=== PATIENT | female | born 1930 | race Caucasian/White ===

== ENCOUNTER 2018-04-02 10:15 | Observation (INO) | payer OTHER, MEDICARE ==
[2018-04-02 10:26] VITALS: BMI 21.7
--- NOTE | 2018-04-02 10:36 | PDOC ---
History of Present Illness - History of Present Illness Initial Comments: This patient is an 87 year old female with a PMHx of rheumatoid arthritis, HTN, HLD, who was referred to the ED by her PCP with complaints of right flank pain this morning. Patient states that her right flank pain began this morning and denies any recent trauma or any recent strenuous activity. Patient states that the flank pain shoots down to the level of her right knee making it extremely difficult for her ambulate or move much. She states that she had a similar less intense right flank/back pain during the week that she attributed to her arthritis. She states that she has never experienced this pain before. Patient states that she took 2 extra strength Tylenol this morning. Denies right foot weakness, urinary incontinence, difficulty voiding. Social Hx: denies EtOH or cigarette use PCP: Bossman Humphries <Faith Collado - Last Filed: 04/02/18 15:05> <Ian Kim - Last Filed: 04/02/18 15:58> - General Chief Complaint: Pain, Acute Stated Complaint: PCP SENT/PAIN, ACUTE Time Seen by Provider: 04/02/18 10:36 Past History <Faith Collado - Last Filed: 04/02/18 15:05> - Past Medical History Anemia: Yes Asthma: No Cancer: No Cardiac Disorders: No CVA: No COPD: No CHF: No Dementia: No Diabetes: No GI Disorders: Yes (REFLUX) Disorders: No HTN: Yes (DX 1994) Hypercholesterolemia: Yes (OFF MEDS CURRENTLY) Liver Disease: No Seizures: No Thyroid Disease: No - Surgical History Abdominal Surgery: Yes ([facility]) Appendectomy: No Cardiac Surgery: No Cholecystectomy: No Neurologic Surgery: No Orthopedic Surgery: Yes (R ROTATOR CUFF REPAIR-2004) - Immunization History Immunization Up to Date: No - Suicide/Smoking/Psychosocial Hx Smoking History: Never smoked Have you smoked in the past 12 months: No Information on smoking cessation initiated: No Hx Alcohol Use: No Drug/Substance Use Hx: No Substance Use Type: None Hx Substance Use Treatment: No <Ian Kim - Last Filed: 04/02/18 15:58> - Past Medical History Allergies/Adverse Reactions: Allergies Allergy/AdvReac Type Severity Reaction Status Date / Time No Known Allergies Allergy Verified 03/02/15 08:58 Home Medications: Ambulatory Orders Aspirin [Aspirin EC] 81 mg PO DAILY 02/15/15 Calcium Carbonate [Tums Calcium For Life] 300 mg PO DAILY 02/15/15 Cholecalciferol (Vitamin D3) [Vitamin D3] 1,000 unit PO DAILY 02/15/15 Fish Oil/Borage/Flax/Om3,6,9 1 [[place] 3-6-9 Complex Softgel] 400 mg PO DAILY 01/22 Lisinopril [Prinivil -] 40 mg PO DAILY 02/15/15 Multivitamins [Multivit ([facility])] 1 tab PO DAILY 02/15/15 Vitamin B Complex 1 tab PO DAILY 02/15/15 Atorvastatin Ca [Lipitor] 10 mg PO HS 04/02/18 Nebivolol [Bystolic -] 5 mg PO HS 04/02/18 Review of Systems - Review of Systems Comments:: CONSTITUTIONAL: No fever, no chills, no fatigue EYES: No visual changes ENT: No ear pain, no sore throat CARDIOVASCULAR: No chest pain, no palpitations RESPIRATORY: No cough, no SOB GI: No abdominal pain, no nausea, no vomiting, no constipation, no diarrhea GENITOURINARY: No dysuria, no frequency, no hematuria MUSKULOSKELETAL: +right flank pain (radiates to right leg). SKIN: No rash NEURO: No headache <Faith Collado - Last Filed: 04/02/18 15:05> *Physical Exam - Vital Signs Last Vital Signs Temp Pulse Resp BP Pulse Ox 97.6 F 60 16 215/80 H 99 04/02/18 10:22 04/02/18 10:22 04/02/18 10:22 04/02/18 10:22 04/02/18 10:22 <Faith Collado - Last Filed: 04/02/18 15:05> - Vital Signs Last Vital Signs Temp Pulse Resp BP Pulse Ox 97.6 F 60 16 215/80 H 99 04/02/18 10:22 04/02/18 10:22 04/02/18 10:22 04/02/18 10:22 04/02/18 10:22 - Physical Exam Comments: 04/02/18 13:00 EXAMINATION CONSTITUTIONAL: Patient is awake and alert, unable to ambulate without assistance, in moderate distress HEAD: Normocephalic; atraumatic EYES: PERRL; EOM intact ENMT: External appears normal; normal oropharynx NECK: Supple; non-tender; no cervical lymphadenopathy CARD: Normal S1, S2; no murmurs, rubs, or gallops RESP: Normal chest excursion with respiration; breath sounds clear and equal bilaterally; no wheezes, rhonchi, or rales ABD: Soft, non-distended; non-tender; no palpable organomegaly, no palpable hernias BACK: No obvious deformity, mild midline and right paraspinal tenderness at L3/ L4/L5 and S1; pelvis is stable EXT: Normal passive ROM in all four extremities; straight leg raise is positive on the right; non-tender to palpation; distal pulses intact; gait is deferred; DTRs are +2 bilaterally; SKIN: Warm, dry, no rash NEURO: Cranial nerves II through XII are grossly intact; right lower extremity: Hip flexion/extension 5 of 5; knee flexion/extension 5 of 5; plantar flexion is 4 of 5; dorsi flexion of the right foot is 3 of 5; left lower extremity: Hip flexion/extension 5 of 5; knee flexion/extension 5 of 5; foot dorsiflexion/ plantar flexion 5 of 5; <Ian Kim - Last Filed: 04/02/18 15:58> ED Treatment Course - LABORATORY CBC & Chemistry Diagram: 04/02/18 11:05 04/02/18 11:05 - RADIOLOGY Radiograph Interpretation: Lumbar Spine MRI Impression: Rotatory dextroscoliosis of lumbosacral spine. No evidence of disc herniation, central spinal canal stenosis. Mild spondylolisthesis is observed at several levels as described the body of report. No compression of neural structure traversing through the neural foramina. No acute compression deformities are seen. Reported By: Sherri Silverman MD 04/02/18 9312 Lumbar Sacral X-ray Impression: Dextroscoliosis of the lumbosacral spine. L5-S1. Loss of interval disc space height. Mild degenerative anterior spondylolisthesis on L4 on L5 is suggested. Reported By: Herrera Polanco MD 04/02/18 9917 - Medications Given in the ED: ED Medications Discontinued Medications Generic Name Dose Route Start Last Admin Trade Name Freq PRN Reason Stop Dose Admin Morphine Sulfate 2 mg 04/02/18 10:58 04/02/18 11:21 Morphine Sulfate IVPUSH 04/02/18 10:59 2 mg ONCE ONE Administration <Faith Collado - Last Filed: 04/02/18 15:05> - LABORATORY CBC & Chemistry Diagram: 04/02/18 11:05 04/02/18 11:05 <Ian Kim - Last Filed: 04/02/18 15:58> Medical Decision Making - Medical Decision Making 04/02/18 11:43 87-year-old female with hypertension and hyperlipidemia presents with Low back pain and right sided foot drop in the L4/L5/S1 distribution. Will obtain MR without contrast to rule out nerve compression. We'll administer pain meds. Neurosurgical consult as needed. 04/02/18 15:57 Patient's MRI reveals no evidence of spinal stenosis or nerve root compression or cauda equina syndrome. On reassessment, after administration of pain medication, patient's foot drop is no longer appreciated. Reproducible pain is noted at the right gluteal area. Will obtain CT of pelvis to rule out piriformis syndrome. Will place in obs for intractable back pain. <Ian Kim - Last Filed: 04/02/18 15:58> *DC/Admit/Observation/Transfer - Attestations Scribe Attestion: 04/02/18 11:24 Documentation prepared by Faith Collado, acting as medical research associate for Ian Kim MD. <Faith Collado - Last Filed: 04/02/18 15:05> - Discharge Dispostion Decision to Admit order: Yes <Ian Kim - Last Filed: 04/02/18 15:58> Diagnosis at time of Disposition: Intractable low back pain - Discharge Dispostion Condition at time of disposition: Fair
[2018-04-02] MEDS ORDERED: MORPHINE SULFATE 2 MG/ML VIAL IVPUSH ONE (10:58)
[2018-04-02] MEDS ORDERED: MORPHINE SULFATE 2 MG/ML VIAL ONE (11:15)
[2018-04-02 11:45] LABS: BASO % 0.3 % (0-2.0); EOS % 0.4 % (0-4.5); HEMATOCRIT 38.3 % (32.4-45.2); MCH 19.8 pg (25.7-33.7); MCHC 31.4 g/dl (32.0-36.0); MEAN CELL VOLUME 63.1 fl (80-96); MEAN PLT VOLUME 9.6 fl (7.5-11.1); MONO % 5.1 % (3.8-10.2); NEUT % 77.2 % (42.8-82.8); PLATELET COUNT 237 K/MM3 (134-434); RBC 6.07 M/mm3 (3.60-5.2); RDW 16.8 % (11.6-15.6); WHITE BLOOD COUNT 6.6 K/mm3 (4.0-10.0)
[2018-04-02 11:58] LABS: INR 0.96 (0.83-1.09); PROTHROMBIN TIME (PATIENT) 11.3 SEC (9.7-13.0)
[2018-04-02 12:20] LABS: ALBUMIN 4.6 g/dl (3.4-5.0); ALK PHOS 69 U/L (45-117); ANION GAP 9 MMOL/L (8-16); BILIRUBIN,TOTAL 0.6 mg/dL (0.2-1); BLOOD UREA NITROGEN 14 mg/dL (7-18); CALCIUM 9.3 mg/dL (8.5-10.1); CHLORIDE 103 mmol/L (98-107); CO2 28 mmol/L (21-32); CREATININE 0.7 mg/dL (0.55-1.3); GLUCOSE,RANDOM 84 mg/dL (74-106); POTASSIUM 4.4 mmol/L (3.5-5.1); SGOT/AST 18 U/L (15-37); SGPT/ALT 21 U/L (13-61); SODIUM 140 mmol/L (136-145); TOT PROT 7.7 g/dl (6.4-8.2)
[2018-04-02] MEDS ORDERED: ONDANSETRON 4 MG/2 ML VIAL IVPUSH ONE (12:24)
[2018-04-02] MEDS ORDERED: ONDANSETRON 4 MG/2 ML VIAL ONE ×2 (12:26→15:39)
[2018-04-02 13:35] LABS: ANISOCYTOSIS 2+; MACROCYTOSIS 0; OVALOCYTE 1+; PLATELET ESTIMATE NORMAL; TARGET CELLS 2+
[2018-04-02] MEDS ORDERED: ONDANSETRON 4 MG/2 ML VIAL IVPB ONE (15:05)
[2018-04-02] MEDS ORDERED: DEXTROSE 5%-0.45% SALINE 1,000 ML IV SCH (15:15)
--- NOTE | 2018-04-02 16:25 | HP ---
Admitting History and Physical - Primary Care Physician PCP: Bossman Humphries - Admission Chief Complaint: back pain History of Present Illness: is a pleasant 87 year old female pmh of HTN,HLD,OA who comes in with complaints of severe lower back pain which started this am. Pt reports sudden onset of severe 10/10 sharp pain on right lower lumbar area radiating to RLE without significant relief. She reports she has never had this pain in the past. She reports inability to ambulate and function due to the pain. Pt denies any falls, or trauma at home. Denies any chest pain, sob, n/v/d, abd pain, fecal /urinary incontinence, numbness/tingling, fever/chills, unilateral weakness, dysuria, blood in urine/stool or rash. History Source: Patient, Family Member Limitations to Obtaining History: No Limitations - Past Medical History Cardiovascular: Yes: HTN, Hyperlipdemia Heme/Onc: Yes: Other (Thalassemia trait) Infectious Disease: Yes: Herpes Zoster Musculoskeletal: Yes: Osteoarthritis - Past Surgical History Past Surgical History: Yes: Arthrosocopy (s/p right rotator cuff surgery), Cataract Removal, Hysterectomy - Smoking History Smoking history: Never smoked Have you smoked in the past 12 months: No - Alcohol/Substance Use Hx Alcohol Use: No History of Substance Use: reports: None - Social History Usual Living Arrangement: Yes: With Child ADL: Independent History of Recent Travel: No Home Medications - Allergies Allergies/Adverse Reactions: Allergies Allergy/AdvReac Type Severity Reaction Status Date / Time Penicillins Allergy Verified 04/02/18 16:22 - Home Medications Home Medications: Ambulatory Orders Lisinopril [Prinivil -] 40 mg PO DAILY 02/15/15 Atorvastatin Ca [Lipitor] 10 mg PO HS 04/02/18 Nebivolol [Bystolic -] 10 mg PO HS 04/02/18 Family Disease History - Family Disease History Family Disease History: Heart Disease: Father, CA: Mother (lymphoma), Brother ( lymphoma) Review of Systems Findings/Remarks: as per hpi Physical Examination Vital Signs: Vital Signs Temperature 98 F 04/02/18 13:31 Pulse Rate 56 L 04/02/18 13:31 Respiratory Rate 20 04/02/18 13:31 Blood Pressure 119/65 04/02/18 13:31 O2 Sat by Pulse Oximetry (%) 98 04/02/18 13:31 Constitutional: Yes: Well Nourished, No Distress, Calm Cardiovascular: Yes: WNL, Regular Rate and Rhythm. No: Murmur, Rub Respiratory: Yes: WNL, Regular, CTA Bilaterally. No: Accessory Muscle Use, Rhonchi, SOB, Tachypnea, Wheezes Gastrointestinal: Yes: WNL, Normal Bowel Sounds, Soft, Abdomen, Obese. No: Distention, Tenderness Renal/: Yes: CVA Tenderness - Right Musculoskeletal: Yes: Back Pain (+TTP) Extremities: Yes: WNL Edema: No Neurological: Yes: WNL, Alert, Oriented Psychiatric: Yes: WNL, Alert, Oriented Labs: CBC, BMP 04/02/18 11:05 04/02/18 11:05 Imaging - Results X-ray: Report Reviewed (Lumbar Sacral X-ray: Dextroscoliosis of the lumbosacral spine. L5-S1. Loss of interval disc space height. Mild degenerative anterior spondylolisthesis on L4 on L5 is suggested.) Cat Scan: Pending MRI: Report Reviewed (Lumbar Spine MRI: Rotatory dextroscoliosis of lumbosacral spine. No evidence of disc herniation, central spinal canal stenosis. Mild spondylolisthesis is observed at several levels as described the body of report. No compression of neural structure traversing through the neural foramina. No acute compression deformities are seen.) Problem List - Problems (1) Intractable low back pain Assessment/Plan: severe 10/10 right LBP radiating to RLE +ttp xray/mri lumbar spine without acute findings r/o infectious/renal etiology UA/UC ordered abd/pelvic CT ordered tylenol/juan/tramadol if no improvement, will do trial of nsaids PT ordered monitor Code(s): M54.5 - LOW BACK PAIN (2) Impaired ambulation Assessment/Plan: as above Code(s): R26.2 - DIFFICULTY IN WALKING, NOT ELSEWHERE CLASSIFIED (3) HTN (hypertension) Assessment/Plan: controlled continue lisinopril, bystolic Code(s): I10 - ESSENTIAL (PRIMARY) HYPERTENSION Qualifiers: Hypertension type: essential hypertension Qualified Code(s): I10 - Essential (primary) hypertension (4) HLD (hyperlipidemia) Assessment/Plan: stable continue statin Code(s): E78.5 - HYPERLIPIDEMIA, UNSPECIFIED (5) Thalassemia trait Assessment/Plan: h/h stable Code(s): D56.3 - THALASSEMIA MINOR (6) History of herpes zoster Code(s): Z86.19 - PERSONAL HISTORY OF OTHER INFECTIOUS AND PARASITIC DISEASES
[2018-04-02] MEDS ORDERED: oxyCODONE HCL 5 MG TABLET PO PRN (16:30)
[2018-04-02] MEDS ORDERED: traMADol HCL 50 MG TABLET PO PRN (16:32)
[2018-04-02] MEDS: ONDANSETRON 4 MG/2 ML VIAL IVPUSH PRN (19:53)
[2018-04-02] MEDS: NEBIVOLOL 10 MG TABLET (FP) PO SCH (21:33)
[2018-04-02] MEDS: ATORVASTATIN CA 10 MG TABLET (FP) PO SCH (21:34)
[2018-04-02 23:49] LABS: URINE APPEARANCE SLCLOUDY; URINE BILIRUBIN NEGATIVE (<2.0 mg/dL); URINE COLOR YELLOW; URINE GLUCOSE (UA) NEGATIVE (NEGATIVE); URINE KETONE TRACE (NEGATIVE); URINE LEUK ESTERASE NEGATIVE (NEGATIVE); URINE NITRITE NEGATIVE (NEGATIVE); URINE PROTEIN NEGATIVE (NEGATIVE); URINE UROBILINOGEN NEGATIVE mg/dL (0.2-1.0)
[2018-04-03] MEDS: ACETAMINOPHEN 325 MG TABLET (FP) PO SCH ×3 (00:55→06:44)
[2018-04-03 07:33] LABS: BASO % 0.4 % (0-2.0); EOS % 2.5 % (0-4.5); HEMATOCRIT 34.9 % (32.4-45.2); LYMPH % 37.8 % (8-40); MCHC 31.4 g/dl (32.0-36.0); MEAN CELL VOLUME 62.7 fl (80-96); MEAN PLT VOLUME 8.7 fl (7.5-11.1); MONO % 9.3 % (3.8-10.2); PLATELET COUNT 223 K/MM3 (134-434); RBC 5.57 M/mm3 (3.60-5.2); RDW 16.8 % (11.6-15.6)
[2018-04-03 07:34] LABS: MCH 19.7 pg (25.7-33.7)
[2018-04-03 07:50] LABS: ANION GAP 9 MMOL/L (8-16); BLOOD UREA NITROGEN 9 mg/dL (7-18); CALCIUM 8.3 mg/dL (8.5-10.1); CHLORIDE 105 mmol/L (98-107); CO2 29 mmol/L (21-32); CREATININE 0.7 mg/dL (0.55-1.3); GLUCOSE,RANDOM 95 mg/dL (74-106); POTASSIUM 3.8 mmol/L (3.5-5.1); SODIUM 142 mmol/L (136-145)
[2018-04-03] MEDS: LISINOPRIL 20 MG TABLET (FP) PO SCH (10:46)
[2018-04-03] MEDS: IBUPROFEN 400 MG TABLET (FP) PO SCH ×2 (11:18→18:09)
[2018-04-03] MEDS: ONDANSETRON 4 MG/2 ML VIAL IVPUSH PRN (11:19)
--- NOTE | 2018-04-03 11:22 | PN ---
Progress Note, Physician Chief Complaint: Pt lying in bed in no acute distress. Pain slightly improved. Nausea w/ oxycodone. tolerated PT but still has severe pain. Denies any chest pain, sob, v /d, numbness/tingling - Current Medication List Current Medications: Active Medications Atorvastatin Calcium (Lipitor -) 10 mg PO HS [facility] Last Admin: 04/02/18 21:34 Dose: Not Given Ibuprofen (Motrin -) 400 mg PO Q6HPO [facility] Lisinopril (Prinivil) 40 mg PO DAILY [facility] Last Admin: 04/03/18 10:46 Dose: 40 mg Nebivolol (Bystolic -) 10 mg PO HS [facility] Last Admin: 04/02/18 21:33 Dose: 10 mg Ondansetron HCl (Zofran Injection) 4 mg IVPUSH Q6H PRN PRN Reason: NAUSEA Last Admin: 04/02/18 19:53 Dose: 4 mg Oxycodone HCl (Roxicodone -) 5 mg PO Q6H PRN PRN Reason: PAIN LEVEL 7 - 10 Last Admin: 04/03/18 08:45 Dose: 5 mg Tramadol HCl (Ultram -) 25 mg PO Q6H PRN PRN Reason: PAIN LEVEL 4 - 6 - Objective Vital Signs: Vital Signs Temperature 97.9 F 04/03/18 05:00 Pulse Rate 50 L 04/03/18 05:00 Respiratory Rate 18 04/03/18 05:00 Blood Pressure 126/48 L 04/03/18 05:00 O2 Sat by Pulse Oximetry (%) 98 04/02/18 20:00 Constitutional: Yes: Well Nourished, No Distress, Calm Cardiovascular: Yes: WNL, Regular Rate and Rhythm. No: Gallop, Murmur Respiratory: Yes: WNL, Regular, CTA Bilaterally Gastrointestinal: Yes: WNL, Normal Bowel Sounds, Soft. No: Distention, Hematemesis, Tenderness, Rebound, Vomiting Genitourinary: Yes: WNL Musculoskeletal: Yes: Back Pain (Right lateral lumbar, +TTP) Edema: No Neurological: Yes: WNL, Alert, Oriented Psychiatric: Yes: WNL, Alert, Oriented Labs: CBC, BMP 04/03/18 06:50 04/03/18 06:50 INR, PTT INR 0.96 (0.83-1.09) 04/02/18 11:05 Assessment/Plan (1) Intractable low back pain Assessment/Plan: improving +ttp, reproducible xray/mri lumbar spine without acute findings abd/pelvis ct w/ focal colon thickening, unlikely cause of pain however will consult GI to evaluate infectious work up negative suspect possible muscle strain d/c juan due to nausea trial of motrin, flexeril apply heat packs for relief PT- ambulated 100ft monitor Code(s): M54.5 - LOW BACK PAIN (2) Low back strain Assessment/Plan: as above Code(s): S39.012A - STRAIN OF MUSCLE, FASCIA AND TENDON OF LOWER BACK, INIT Qualifiers: Encounter type: initial encounter Qualified Code(s): S39.012A - Strain of muscle, fascia and tendon of lower back, initial encounter (3) Impaired ambulation Assessment/Plan: as above Code(s): R26.2 - DIFFICULTY IN WALKING, NOT ELSEWHERE CLASSIFIED (4) HTN (hypertension) Assessment/Plan: controlled continue lisinopril, bystolic Code(s): I10 - ESSENTIAL (PRIMARY) HYPERTENSION Qualifiers: Hypertension type: essential hypertension Qualified Code(s): I10 - Essential (primary) hypertension (5) HLD (hyperlipidemia) Assessment/Plan: stable continue statin Code(s): E78.5 - HYPERLIPIDEMIA, UNSPECIFIED (6) Thalassemia trait Assessment/Plan: h/h stable Code(s): D56.3 - THALASSEMIA MINOR (7) History of herpes zoster Code(s): Z86.19 - PERSONAL HISTORY OF OTHER INFECTIOUS AND PARASITIC DISEASES Dispo: home w/ vns tmorrow if pain controlled without acute changes
--- NOTE | 2018-04-03 12:17 | EKG ---
Test Reason : Blood Pressure : / mmHG Vent. Rate : 051 BPM Atrial Rate : 051 BPM P-R Int : 156 ms QRS Dur : 084 ms QT Int : 476 ms P-R-T Axes : 059 -08 005 degrees QTc Int : 438 ms SINUS BRADYCARDIA NONSPECIFIC T WAVE ABNORMALITY ABNORMAL ECG NO PREVIOUS ECGS AVAILABLE Confirmed by ALLEN LEAHY, GIL ([id number]) on 04/03/2018 12:17:37 PM Referred By: Confirmed By:GIL VILLA MD
[2018-04-03] MEDS: PANTOPRAZOLE 20 MG TABLET (FP) PO SCH (12:36)
[2018-04-03] MEDS: CYCLOBENZAPRINE HCL 10 MG TABLET (FP) PO SCH (12:36)
--- NOTE | 2018-04-03 17:56 | CON.GI ---
Consult Consult Specialty:: GI Referred by:: Dr. Bossman Humphries Reason for Consultation:: Thickening along ascending colon on CT scan - History of Present Illness Chief Complaint: right hip pain History of Present Illness: 87F admitted fopr evaluation of right hip pain. She underwent CT scan of the abdomen that revealed an area of non-specific thickening on CT scan along the ascending colon. She denies diarrhea, rectal bleeding, change in bowel habits. She had a colonoscopy 10 years ago and has two in her life. She denies a history of colon polyps. One of her sisters had colon cancer diagnosed at age 42. The pain was reproducible upon palpation of the lateral and posterior portion of her right hip. She was started on NSAIDs, which seems to have improved the pain as she can now walk to the bathroom. - History Source History Provided By: Patient, Family Member - Past Medical History Cardio/Vascular: Yes: HTN, Hyperlipdemia Infectious Disease: Yes: Herpes Zoster Musculoskeletal: Yes: Osteoarthritis - Past Surgical History Past Surgical History: Yes: Arthrosocopy (s/p right rotator cuff surgery), Cataract Removal, Hysterectomy (CARMELITA/BSO) Additional Surgical History: bladder lift, resection of benign tumor on left thigh, right rotator cuff repair - Alcohol/Substance Use Hx Alcohol Use: No History of Substance Use: reports: None - Smoking History Smoking history: Never smoked Have you smoked in the past 12 months: No - Social History Usual Living Arrangement: With Child () ADL: Independent Occupation: Retired: worked on [employer] Place of : [facility] History of Recent Travel: No Home Medications - Allergies Allergies/Adverse Reactions: Allergies Allergy/AdvReac Type Severity Reaction Status Date / Time Penicillins Allergy Verified 04/02/18 16:22 - Home Medications Home Medications: Ambulatory Orders Lisinopril [Prinivil -] 40 mg PO DAILY 02/15/15 Atorvastatin Ca [Lipitor] 10 mg PO HS 04/02/18 Nebivolol [Bystolic -] 10 mg PO HS 04/02/18 Family Disease History - Family Disease History Family Disease History: Heart Disease: Father (: 73 COPD), CA: Mother ( : 53: lymphoma), Brother (lymphoma), Other: Father, Sister (Colon cancer, age 42 ) Review of Systems - Review of Systems Constitutional: denies: Chills Cardiovascular: denies: Chest Pain Respiratory: denies: Cough Gastrointestinal: reports: Abdominal Pain (describes chronic "soreness" in the right lower abdomen that has been unchanged and predating acute pain complaint of right hip), Constipation (While in hospital). denies: Diarrhea, Nausea, Rectal Bleeding Physical Exam-GI Vital Signs: Vital Signs Temperature 98.1 F 04/03/18 09:00 Pulse Rate 50 L 04/03/18 09:00 Respiratory Rate 18 04/03/18 09:00 Blood Pressure 115/56 L 04/03/18 09:00 O2 Sat by Pulse Oximetry (%) 98 04/02/18 20:00 Constitutional: Yes: Calm Eyes: No: Sclera Icterus Cardiovascular: Yes: Bradycardia (regular rhythm) Respiratory: Yes: CTA Bilaterally Gastrointestinal Inspection: No: Distention ...Auscultate: Yes: Normoactive Bowel Sounds ...Palpate: Yes: Soft, Tenderness (mild TTP rlq, no guarding, rebound. Describes chronic symptoms in this area) ...Percussion: No: Tympanitic ...Rectal Exam: Yes: Other (No external lesions, formed light brown stool in the rectal vault, guaiac negative) Edema: No (No LE edema) Neurological: Yes: Alert, Oriented Labs: CBC, BMP 04/03/18 06:50 04/03/18 06:50 INR, PTT INR 0.96 (0.83-1.09) 04/02/18 11:05 Imaging - Results Cat Scan: Report Reviewed, Image Reviewed Problem List - Problems (1) Intractable low back pain Assessment/Plan: Pain seems to have been focal to the hip and improved with NSAIDs. It sounds musculoskelatal / somatic in nature. I do not think the colon finding is related to this. I did explain to the patient and her family, who was present bedside, that given her family history of colon cancer and the fact that her last colonoscopy was 10 years ago, a follow-up colonoscopy should be performed to exclude mass lesion. This can be performed as an outpatient. If pain persists and there is no continued improvement with NSAID analgesia, then inpatient evaluation next week would be considered. Continue protonix 20mg daily while on NSAID therapy MiraLAX 17g daily Office information was provided to patient and her family Code(s): M54.5 - LOW BACK PAIN
[2018-04-03] MEDS: ATORVASTATIN CA 10 MG TABLET (FP) PO SCH (22:11)
[2018-04-03] MEDS: NEBIVOLOL 10 MG TABLET (FP) PO SCH (22:12)
[2018-04-04] MEDS: IBUPROFEN 400 MG TABLET (FP) PO SCH ×3 (00:08→12:20)
[2018-04-04] MEDS ORDERED: POLYETHYLENE GLYCOL 3350 119 GM BTL PO SCH (10:00)
[2018-04-04] MEDS ORDERED: PT OWN MED DRAWER 7, Y5N ONE (10:11)
[2018-04-04 10:20] VITALS: BP 135/81; PULSE 56; TEMP 97.6
[2018-04-04] MEDS: CYCLOBENZAPRINE HCL 10 MG TABLET (FP) PO SCH (10:20)
[2018-04-04] MEDS: PANTOPRAZOLE 20 MG TABLET (FP) PO SCH (10:21)
[2018-04-04] MEDS: LISINOPRIL 20 MG TABLET (FP) PO SCH (10:21)
--- NOTE | 2018-04-04 11:53 | DS ---
Physical Examination Vital Signs: Vital Signs Temperature 97.6 F 04/04/18 10:00 Pulse Rate 56 L 04/04/18 10:00 Respiratory Rate 20 04/04/18 10:00 Blood Pressure 135/81 04/04/18 10:00 O2 Sat by Pulse Oximetry (%) 95 04/04/18 00:51 Constitutional: Yes: Well Nourished, No Distress, Calm Cardiovascular: Yes: WNL, Regular Rate and Rhythm. No: Murmur, Rub Respiratory: Yes: WNL, Regular, CTA Bilaterally. No: Accessory Muscle Use, Rhonchi, SOB, Tachypnea, Wheezes Gastrointestinal: Yes: WNL, Normal Bowel Sounds, Soft. No: Distention, Tenderness Renal/: Yes: WNL Musculoskeletal: Yes: Back Pain (right flank- improved, mild ttp) Extremities: Yes: WNL Edema: No Neurological: Yes: WNL, Alert, Oriented Psychiatric: Yes: WNL, Alert, Oriented Labs: CBC, BMP 04/03/18 06:50 04/03/18 06:50 Discharge Summary Reason For Visit: INTRACTABLE LOW BACK PAIN Current Active Problems HLD (hyperlipidemia) (Acute) HTN (hypertension) (Acute) History of herpes zoster (Acute) Impaired ambulation (Acute) Intractable low back pain (Acute) Low back strain (Acute) Thalassemia trait (Acute) Hospital Course: is a pleasant 87 year old female who was admitted for evaluation of severe right sided lower back pain. MRI/Xray without acute findings. Abd/ pelvis CT without significant finding, did reveal a focal thickening on ascending colon. GI consult appreciated, outpt follow up and possible colonoscopy considering family history of colon ca recommended. Suspect musculoskeletal etiology such as a strain considering the pain is reproducible. Pt initially started on roxicodone, could not tolerate due to nausea/weakness. Pain improved with trial of nsaids and PT. Pt otherwise in no acute distress, vitals stable, labs unremarkable, ambulated safely with PT. Pt requires a walker for ambulation at home. Pt is medically stable for discharge home with VNS for PT. Advised pt to continue motrin for 2-3 more days and then take it as needed. Protonix given for gi prophylaxis. Pt may take flexeril at night to avoid daytime lethargy. Follow up as directed. 32 minutes spent in discharge planning Condition: Improved - Instructions Diet, Activity, Other Instructions: ambulate with walker as tolerated meds as directed- bp has been low normal here, please check your bp before taking bp medications, IF BP <130/80 OR FEELING DIZZY, DO NOT TAKE BP MED adequate hydration- 2l/day Ibuprofen and flexeril - may stop taking it or take it as needed if pain improved. take it as directed for 3 more days. TAKE WITH FOOD FLEXERIL- CUT IT IN HALF AND TAKE IT AT NIGHT ONLY follow up as directed Referrals: Kd Cabral DO [Staff Physician] - 1 Month Bossman Humphries MD [Staff Physician] - 1 Week Disposition: VNS/HOME HEALTH CARE - Home Medications Comprehensive Discharge Medication List: Ambulatory Orders Lisinopril [Prinivil -] 40 mg PO DAILY 02/15/15 Atorvastatin Ca [Lipitor] 10 mg PO HS 04/02/18 Nebivolol [Bystolic -] 10 mg PO HS 04/02/18 Cyclobenzaprine HCl [Flexeril -] 5 mg PO HS #14 tablet 04/04/18 Ibuprofen [Motrin -] 400 mg PO Q6HPO #21 tablet 04/04/18 Pantoprazole Sodium [Protonix -] 20 mg PO DAILY #14 tablet.ec 04/04/18 Polyethylene Glycol 3350 [Miralax 119 gm Btl -] 17 gm PO DAILY #1 bottle
== END 2018-04-04 13:37 | disposition home health service (06) ==
LOC: JER 10:15 → JERBED 15:58 → J5S 19:18
PROVIDERS: ADMIT Internal Medicine; ATTEND Internal Medicine
PROC: 3E033NZ Introduction of Analgesics, Hypnotics, Sedatives into Peripheral Vein, Percutaneous Approach (ICD-10-PCS; principal; 2018-04-02)
PROC: 3E033GC Introduction of Other Therapeutic Substance into Peripheral Vein, Percutaneous Approach (ICD-10-PCS; 2018-04-02)
DX: M54.5 Low back pain (principal); S39.012A Strain of muscle, fascia and tendon of lower back, initial encounter; R26.2 Difficulty in walking, not elsewhere classified; I10 Essential (primary) hypertension; E78.5 Hyperlipidemia, unspecified; D56.3 Thalassemia minor; Z86.19 Personal history of other infectious and parasitic diseases; M19.90 Unspecified osteoarthritis, unspecified site; Z79.82 Long term (current) use of aspirin; Z88.0 Allergy status to penicillin; X58.XXXA Exposure to other specified factors, initial encounter; Y93.9 Activity, unspecified; Y92.9 Unspecified place or not applicable
CPT/HCPCS: 36415; 72100-TC-FY; 72148-TC; 74176-TC; 80048; 80053; 81003; 83735; 85025; 85610; 86850; 86900; 86901; 87086; 93005; 93010; 96374; 96375; 96376; 97116-GP; 97162-GP; 99283-25; G0378